=== PATIENT | female | born 1970 | race Two or more races ===

== ENCOUNTER → 2025-05-25 | Outpatient (CLI) | payer BC, SELFPAY ==
--- NOTE | 2025-05-25 15:30 | XR_ITS ---
Examination: Breast ultrasound, unilateral, left complete Date and time of exam: May 25, 2025 1531 hours INDICATIONS: Left breast sonogram January 20, 2024 1:00 nodule 4 x 4 millimeter retroareolar nodule 7 mm Technique: Real-time win scale ultrasonographic imaging performed left breast including all 4 quadrants as well as nipple retroareolar and axillary region. Findings: 1:00 nodule lobular margins 5 x 5 mm Retroareolar cyst 4 x 4 millimeter Retroareolar nodule 4 x 7 mm lobular margins IMPRESSION: BI-RADS Category 3: Probably benign findings Recommend 1 additional 6 month left breast sonogram follow-up
== END | disposition home or self-care (01) ==
PROVIDERS: PCP Family Medicine; Referring Provider Obstetrics & Gynecology; Visit Provider Obstetrics & Gynecology
DX: N63.21 Unspecified lump in the left breast, upper outer quadrant (principal); N63.42 Unspecified lump in left breast, subareolar; N60.02 Solitary cyst of left breast
CPT/HCPCS: 76641

== ENCOUNTER → 2025-07-21 | Outpatient (CLI) | payer BC, SELFPAY ==
--- NOTE | 2025-07-21 13:00 | XR_ITS ---
Examination: Screening digital mammography, bilateral Computer aided detection 3-D breast Tomosynthesis, bilateral Date and time of exam: July 21, 2025, 1248 hours Compared to mammograms dating to March 14, 2021 Indication: Screening Technique: Nonmagnified MLO, CC views of the breasts to been obtained, reconstructed from 3-D Tomosynthesis images. R2 computer aided detection program utilized for evaluation of suspicious masses and/or abnormal calcifications. 3-D Tomosynthesis images obtained. Findings: The breasts are heterogeneously dense, which may obscure small masses 6 mm nodule upper outer left breast anterior depth Impression: BI-RADS Category 0: Incomplete: Need additional imaging evaluation Recommend follow-up spot tomographic views of 6 mm nodule upper outer left breast anterior to as well as left breast sonography to complete the workup
== END | disposition home or self-care (01) ==
LOC: CDIM 12:13
PROVIDERS: PCP Obstetrics & Gynecology; Referring Provider Obstetrics & Gynecology; Visit Provider Obstetrics & Gynecology
DX: Z12.31 Encounter for screening mammogram for malignant neoplasm of breast (principal); N63.21 Unspecified lump in the left breast, upper outer quadrant
CPT/HCPCS: 77063; 77067

== ENCOUNTER 2025-08-24 15:04 | Outpatient (AMB) | payer BC, SELFPAY ==
--- NOTE | 2025-08-24 16:06 | AMB.GYNCLNOT ---
Vital Signs 08/24/25 16:07 Height 1.6 m Height Method Stated Weight 58.627 kg Weight Measurement Method Standing Scale BMI 22.8 BP 124/84 Blood Pressure Source Automatic Cuff Blood Pressure Location Right Upper Arm Position Sitting Respiration 17 Pulse 61 Pulse Source Monitor Temp 97.5 F Temp Source Temporal Artery Scan Pulse Oximetry (%) 97 Oxygen Delivery Method Room Air Allergies/Home Meds Allergies & Medications Allergies NKA* Allergy (Uncoded 08/24/25 16:08) Medication Reconciliation No Known Home Medications 08/24/25 [History Confirmed 08/24/25] Intake Visit Data Collection New Patient or Established: New Patient (never been to [facility]) Reason for Visit:: FOLLOW UP ABN MAMMO Seen by Clinical Staff ONLY (RN/MA): No Pipe Liner Required: No Do You Feel Safe at Home: Yes Authorities Contacted: N/A PCP or OBGYN visit in last 3 months: No Hx Now: No Are you currently on any form of Control: No Pain Present Currently: No Pain Scale Used: Saldivar-Manzano/Numerical Pain scale:: 0 Smoking Status Smoking Status: Never smoker Clinic Physician Director history Clinic Physician Director History Age at menarche: 15 Menopausal: Yes PRECISION GRINDER: Past Medical History Past Medical History: No Hx Diabetes Mellitus Type 2 Questionnaires Covid-19 Vaccine Questionnaire Has patient been vacinated for Covid-19 Have you been vacinated for Covid-19: No PHQ-9 PHQ-2 Over the last 2 weeks, how often have you been bothered by any of the following problems? 1. Little interest or pleasure in doing things: not at all 2. Feeling down, depressed, or hopeless: not at all Total score: 0 PHQ-9 3. Trouble falling or staying asleep, or sleeping too much: Not at all 4. Feeling tired or having little energy: Not at all 5. Poor appetite or overeating: Not at all 6. Feeling bad about yourself - or that you are a failure or have let yourself or your family down: Not at all 7. Trouble concentrating on things, such as reading the newspaper or watching television: Not at all 8. Moving or speaking so slowly that other people could have noticed? - Or the opposite - being so fidgety or restless that you have been moving around a lot more than usual: not at all 9. Thoughts that you would be better off or of hurting yourself in some way: Not at all Total score: 0 If you checked off any problems, how difficult have these problems made it for you to do your work, take care of things at home, or get along with other people?: not difficult at all Source: Developed by Drs. Johny Hsu, Onelia Iraheta, Raciel Altman and colleagues, with an educational shandra from [employer]. Depression screen completed yes Social History Living Situation History Marital Status: Lives With: Family Housing: House Tobacco History Smoking Status: Never smoker Second Hand Smoke Exposure: No Alcohol History Alcohol Intake: Never Domestic Abuse History Do You Feel Safe at Home: Yes History of Present Illness HPI Narrative Here for abn Mammogram cat 0 needing additional imaging Review of Systems Review of Systems Systems Reviewed: All systems reviewed, normal except as documented Exam Narrative Physical exam: Alert and oriented x 3 no shortness of breath Pain no chest pain no palpitations Chest clear bilaterally no additional sounds, no wheezing no rales CVS regular rate and rhythm No CVAT Abdomen nontender, normal bowel sounds No guarding no rigidity No hernias Results Objective Imaging: Reviewed mammogram from July 21/2025 Needs additional imaging Left breast and US / ordered / follow up in 6 weeks Office Procedures OBC Clinic LOC & Office Proc's Nursing/Assessment Patient Status: Initial/New Patient OB Clinic Nursing Assessment: Medication Reconciliation, Update PMH in EMR and Vital Signs OB Clinic Coordination of Care: Complex Care and Chronic Disease 1-5, Education Complex Pt/Fam, Consent,records obtained, informed consent and Staff clarify orders New Patient Charge New Patient Point Assignment: [id number] New Patient Point Charge: FILL MANAGER Level 3 (8153-2319) Assessment & Plan Diagnosis / Problem List (1) Abnormal mammogram of left breast: Status: Acute Plan abnormal Mammogram left breast needs additional imaging US and Mammogram Plan Ordered additional left breast imaging medications Wait on testosterone injections / the clinic does not have it Patient to bring her prior records from [facility] Follow up 6 weeks
[2025-08-24 16:07] VITALS: BP 124/84; PULSE 61; RESP 17; TEMP 36.4; O2SAT 97; BMI 22.8
== END 2025-08-24 16:32 | disposition home or self-care (01) ==
LOC: HODSOBC 15:04
PROVIDERS: PCP Obstetrics & Gynecology; Referring Provider Obstetrics & Gynecology; Supervising Provider Obstetrics & Gynecology; Visit Provider Obstetrics & Gynecology
DX: R92.8 Other abnormal and inconclusive findings on diagnostic imaging of breast (principal)
CPT/HCPCS: 99203; G0463

== ENCOUNTER → 2025-09-23 | Outpatient (CLI) | payer BC, SELFPAY ==
--- NOTE | 2025-09-23 10:15 | XR_ITS ---
Examination: Breast ultrasound, unilateral, left Date and time of exam: September 23, 2025, 1040 hours INDICATIONS: Left breast sonogram January 20, 2024 1:00 nodule 4 mm) retroareolar nodule 7 mm Technique: Real-time win scale ultrasonographic imaging performed left breast including all 4 quadrants as well as nipple retroareolar and axillary region. Findings: 1:00 nodule 5 x 3 mm lobular margins Retroareolar nodule 9 x 7 mm lobular margins Retroareolar nodule circumscribed 4 x 4 mm IMPRESSION: BI-RADS Category 3: Probably benign findings Continued 6-month left breast sonography follow-up needed to document stability of multiple nodules described above
--- NOTE | 2025-09-23 11:15 | XR_ITS ---
Examination: Diagnostic digital mammography, unilateral, left Computer aided detection 3-D breast Tomosynthesis, unilateral Date and time of exam: September 23, 2025, 1055 hours INDICATIONS: Mammogram 07/21/2025 6 mm nodule upper outer left breast anterior depth Technique: Nonmagnified MLO, CC views of the left breast have been obtained, reconstructed from 3-D Tomosynthesis images. R2 computer aided detection program utilized for evaluation of suspicious masses and/or abnormal calcifications. 3-D Tomosynthesis images obtained. Findings: The breast is heterogeneously dense, which may obscure small masses Nodule remains on the spot compression cc view, outer left breast anterior depth, 5 mm Impression: BI-RADS category 3: Probably benign findings Recommend 1 additional 6-month left mammogram follow-up
== END | disposition home or self-care (01) ==
LOC: CDIM 10:08
PROVIDERS: PCP Family Medicine; Referring Provider Obstetrics & Gynecology; Visit Provider Obstetrics & Gynecology
DX: R92.332 Mammographic heterogeneous density, left breast (principal); N63.42 Unspecified lump in left breast, subareolar; N63.21 Unspecified lump in the left breast, upper outer quadrant
CPT/HCPCS: 76641; 77061; 77065; G0279

== ENCOUNTER 2025-10-05 13:11 | Outpatient (AMB) | payer BC, SELFPAY ==
[2025-10-05 13:19] VITALS: BP 118/84; PULSE 75; RESP 18; TEMP 36.7; O2SAT 97; BMI 22.7
--- NOTE | 2025-10-05 13:19 | GYNCLNT_ITS ---
Vital Signs 10/05/25 13:19 Height 1.6 m Height Method Stated Weight 58.287 kg Weight Measurement Method Standing Scale BMI 22.7 BP 118/84 Blood Pressure Source Automatic Cuff Blood Pressure Location Right Upper Arm Position Sitting Respiration 18 Pulse 75 Pulse Source Monitor Temp 98.1 F Temp Source Temporal Artery Scan Pulse Oximetry (%) 97 Oxygen Delivery Method Room Air Allergies/Home Meds Allergies & Medications Allergies NKA* Allergy (Uncoded 10/05/25 13:21) Medication Reconciliation No Known Home Medications 08/24/25 [History Confirmed 10/05/25] Intake Visit Data Collection New Patient or Established: Established Patient (seen at [facility] within 3 years) Reason for Visit:: MAMMO RESULTS Seen by Clinical Staff ONLY (RN/MA): No Airborne Weapons Technical Manager Required: No Do You Feel Safe at Home: Yes Authorities Contacted: N/A PCP or OBGYN visit in last 3 months: Yes Date of Last PCP or OBGYN visit: 08/24/25 Hx Now: No Are you currently on any form of Control: No Pain Present Currently: No Pain Scale Used: Saldivar-Manzano/Numerical Pain scale:: 0 Smoking Status Smoking Status: Never smoker Immunizations Flu Vaccine in the Last 12 Months: No Flu Vaccine Exclusion Criteria: No Exclusion Criteria Ambulatory Nurse history Ambulatory Nurse History Age at menarche: 15 Menopausal: Yes Currently sexually active: Yes Additional comments: Patient was taking injectable testosterone therapy for decreased libido MANAGER OF FINANCE: Past Medical History Past Medical History: No Hx Diabetes Mellitus Type 2 Questionnaires Covid-19 Vaccine Questionnaire Has patient been vacinated for Covid-19 Have you been vacinated for Covid-19: No PHQ-9 PHQ-2 Over the last 2 weeks, how often have you been bothered by any of the following problems? 1. Little interest or pleasure in doing things: not at all 2. Feeling down, depressed, or hopeless: not at all Total score: 0 PHQ-9 3. Trouble falling or staying asleep, or sleeping too much: Not at all 4. Feeling tired or having little energy: Not at all 5. Poor appetite or overeating: Not at all 6. Feeling bad about yourself - or that you are a failure or have let yourself or your family down: Not at all 7. Trouble concentrating on things, such as reading the newspaper or watching television: Not at all 8. Moving or speaking so slowly that other people could have noticed? - Or the opposite - being so fidgety or restless that you have been moving around a lot more than usual: not at all 9. Thoughts that you would be better off or of hurting yourself in some way: Not at all Total score: 0 If you checked off any problems, how difficult have these problems made it for you to do your work, take care of things at home, or get along with other people?: not difficult at all Source: Developed by Drs. Johny Hsu, Onelia Iraheta, Raciel Altman and colleagues, with an educational shandra from [employer]. Depression screen completed yes Social History Living Situation History Marital Status: Lives With: Family Housing: House Tobacco History Smoking Status: Never smoker Second Hand Smoke Exposure: No Alcohol History Alcohol Intake: Never Domestic Abuse History Do You Feel Safe at Home: Yes History of Present Illness HPI Narrative follow up on left breast abnormal Mammogram and follow up done on 09/23/2025 by diagnostic Left mammogram and Us of left breast / findings show a left breast small nodule still but likely benign cat 3 / Neds a 6 month follow up Review of Systems Review of Systems Systems Reviewed: All systems reviewed, normal except as documented Exam Narrative Physical exam: Alertx 3 does not feel the left breast nodule herself Results of the diagnostic left Breast Mammogram and US d/w patient General General Appearance: alert, cooperative and well groomed Eye Eye exam: Present normal appearance Exp Eye Eyelids: bilateral: normal inspection Results Objective Imaging: Left Breast Mammogram and Us reviewed from 09/23/2025 Medical Office [address] Imaging Report Signed Patient: NATALIE EMERSON Record#: [id number] Birthdate: 1970 Age/Sex: 54 / F Location: [facility] Attending Dr: Timoteo Aj MD Ordering Physician: TIMOTEO AJ MD Date of Service: 09/23/25 Procedure(s): DOUG CAD diagnostic UNI Accession Number(s): [id number] cc: TIMOTEO AJ MD; Juan Francisco Dupont MD; Candelaria Jenkins MD~ Examination: Diagnostic digital mammography, unilateral, left Computer aided detection 3-D breast Tomosynthesis, unilateral Date and time of exam: September 23, 2025, 1055 hours INDICATIONS: Mammogram 07/21/2025 6 mm nodule upper outer left breast anterior depth Technique: Nonmagnified MLO, CC views of the left breast have been obtained, reconstructed from 3-D Tomosynthesis images. R2 computer aided detection program utilized for evaluation of suspicious masses and/or abnormal calcifications. 3-D Tomosynthesis images obtained. Findings: The breast is heterogeneously dense, which may obscure small masses Nodule remains on the spot compression cc view, outer left breast anterior depth, 5 mm Impression: BI-RADS category 3: Probably benign findings Recommend 1 additional 6-month left mammogram follow-up Dictated By: Juan Francisco Dupont MD Signed By: <Electronically signed by Juan Francisco Dupont MD in OV> 09/23/25 1247 Medical Office Building [address] [place] [address] [place] [facility] Report Signed Patient: NATALIE EMERSON Record#: [id number] Birthdate: 1970 Age/Sex: 54 / F Location: [facility] Attending Dr: Timoteo Aj MD Ordering Physician: TIMOTEO AJ MD Date of Service: 09/23/25 Procedure(s): US breast LT complete Accession Number(s): [id number] cc: TIMOTEO AJ MD; Juan Francisco Dupont MD; Candelaria Jenkins MD~ Examination: Breast ultrasound, unilateral, left Date and time of exam: September 23, 2025, 1040 hours INDICATIONS: Left breast sonogram January 20, 2024 1:00 nodule 4 mm) retroareolar nodule 7 mm Technique: Real-time win scale ultrasonographic imaging performed left breast including all 4 quadrants as well as nipple retroareolar and axillary region. Findings: 1:00 nodule 5 x 3 mm lobular margins Retroareolar nodule 9 x 7 mm lobular margins Retroareolar nodule circumscribed 4 x 4 mm IMPRESSION: BI-RADS Category 3: Probably benign findings Continued 6-month left breast sonography follow-up needed to document stability of multiple nodules described above Dictated By: Juan Francisco Dupont MD Signed By: <Electronically signed by Juan Francisco Dupont MD in OV> 09/23/251106 DD/ 05 TD/TT: 09/23/251105 Tooling Inspector: MARIANNE Office Procedures OBC Clinic LOC & Office Proc's Nursing/Assessment Patient Status: Established Patient OB Clinic Nursing Assessment: Medication Reconciliation, Update PMH in EMR and Vital Signs OB Clinic Coordination of Care: Complex Care and Chronic Disease 1-5, Education Complex Pt/Fam, Consent,records obtained, informed consent, Lab and Imaging orders, Results/Orders obtained and Staff clarify orders Special Needs: Heart tones Established Patient Charge Established Patient Point Assignment: 140 Established Patient Point Charge: EP Level 4 (120-155) Assessment & Plan Diagnosis / Problem List (1) Abnormal mammogram of left breast: Status: Acute Additional Plan reviewed reports of L breast Mammogram and US from 09/23/2025 and ae c/w cat3 / will refer for second opinion to Dr Johnson surgeon for evaluation for biopsy / follow up here for 3 months for Left Breast exam Follow Up: 3 Months
== END 2025-10-05 13:36 | disposition home or self-care (01) ==
LOC: HODSOBC 13:11
PROVIDERS: Supervising Provider Obstetrics & Gynecology; Visit Provider Obstetrics & Gynecology
DX: N63.20 Unspecified lump in the left breast, unspecified quadrant (principal)
CPT/HCPCS: 99214; G0463